=== PATIENT | female | born 1960 | race African-American/Black ===

== ENCOUNTER 2016-10-17 10:57 | Day surgery (SDC) | payer BC ==
[~2016-10-17 10:57] MED LIST: *UNABLE2; ALEVE220 MG PO; AMOXICILLIN; ANADS PO; ANTIBIOTIC PO; APRES10B PO; APRES50 PO; ASAB PO; BENTYL10 PO; BENTYL20 PO; BION TEARS OPH; BOTOX INJECTION IM; CATAPRES2 TOP; CEFT5 PO; CHOLESTEROL PILL; COUGH SYRUP; COZAAR100 MG PO; DICYCLOMINE; ELIQUIS 5 MG TAB5 MG PO; EYE INJECTION OPH; GABAPENTIN; GABAPENTIN PO; HCTZ12.5 PO; HUMULIN R1 ML SC; HYZAAR1 TAB PO; INHALER INH; INSNOV7030 SC; INSULIN ASPART; KLOR-CON M2020 MEQ PO; LANTUS; LANTUS SC; LANTUSCART SC; LEVAQ250 PO; LEVAQUIN5T PO; LEVAQUIN750 MG PO; LEVEMFLXPN SC; LEVEMIR SC; LIPITOR40 PO; LISINOPRIL PO; LISINOPRIL/HCTZ; LOP100 PO; LOP25 PO; LOP50 PO; MAXITROL OPH; METHOC750B PO; METOCLOPRAM; METOPROLOL; METOPROLOL PO; MIRALAXPKT PO; NAIL-EX2.5 MG OR; NEUR100 PO; NEUR300 PO; NORV10 PO; NORV5 PO; NOVOLOG; NOVOLOG SC; NOVOPEN SC; OTC NASAL SPRAY NAS; PCET PO; PHENERGAN (G25 MG/ML IM; PHENERGAN LIQUID; PHENERGAN LIQUID PO; PHENERGAN PO; PR12.5 PO; PR25 PO; PRILOSEC40 MG PO; PRIN10 PO; PROMETHAZI6.25 MG/5 PO; PROMETHAZIN1 OR; PROMETHAZINE; PROTONIX PO; PROVHFA INH; Phenergan PO; REFRESH OPH; REG PO; RX EYE DROP OPH; Reglan PO; SPIRO25 PO; TEARS PLUS OPH; TUMSROLL PO; ULTRAM50 PO; WELLXL300 PO; ZESTORETIC PO; ZESTORETIC1 TA1 PO; ZESTORETIC1 TAB PO; ZESTRIL20 MG PO; ZESTRIL5 MG PO; ZOFRANODT8 PO; ZOL100 PO; ZOL50 PO; ZYRTEC ALLGY10 MG PO; [UNRECOGNIZED DRUG - OTHER] OPH
[2017-02-24] MEDS ORDERED: DIOVAN320 MG PO (17:54)
[2017-02-24] MEDS ORDERED: LIPITOR40 PO (17:54)
[2017-02-24] MEDS ORDERED: LOP100 PO (17:55)
[2017-02-24] MEDS ORDERED: LEVEMFLXPN SC (17:55)
[2017-02-24] MEDS ORDERED: REG PO (18:01)
[2017-02-24] MEDS ORDERED: HUMALOGPEN SC (18:02)
[2017-02-24] MEDS ORDERED: BOTOX INJECTION IM (18:03)
[2017-02-24] MEDS ORDERED: *UNABLE3 (18:08)
[2017-02-26] MEDS ORDERED: APRES50 PO (12:59)
[2017-02-26] MEDS ORDERED: REFRESH OPH SO0.3 ML OPH (13:00)
[2017-02-26] MEDS ORDERED: OCEAN NAS (13:01)
[2017-02-26] MEDS ORDERED: VITAMIN D1000 UNI1 PO (13:02)
[2017-02-26] MEDS ORDERED: [UNRECOGNIZED DRUG - REMARK] (13:04)
[2017-02-27] MEDS ORDERED: MIRALAX POWDER1 PKT PO (14:14)
[2017-02-27] MEDS ORDERED: L40 PO (14:19)
[2017-02-27] MEDS ORDERED: NORV10 PO (14:20)
== END 2016-10-17 23:59 | disposition home or self-care (01) ==
LOC: SDC 10:57
PROVIDERS: Internal Medicine Gastroenterology
PROC: 0D20XUZ Change Feeding Device in Upper Intestinal Tract, External Approach (ICD-10-PCS; 2016-10-17)
PROC: BD12YZZ Fluoroscopy of Stomach using Other Contrast (ICD-10-PCS; principal; 2016-10-17 11:41)
DX: Z46.59 Encounter for fitting and adjustment of other gastrointestinal appliance and device (principal); Z88.0 Allergy status to penicillin; Z91.048 Other nonmedicinal substance allergy status; Z79.899 Other long term (current) drug therapy; Z79.4 Long term (current) use of insulin
CPT/HCPCS: 49465